=== PATIENT | male | born 1960 | race African-American/Black ===

== ENCOUNTER 2021-04-21 05:37 | Outpatient (CLI) | payer BC, OTHER ==
[~2021-04-21] VITALS: Ht 190.5 cm; Wt 136.5 kg
[~2021-04-21 05:37] MED LIST: AMIT100T2 PO; HYDR-3720 PO; PRED10TA PO
== END 2021-04-27 08:53 | disposition home or self-care (01) ==
LOC: PREOP 05:37
PROVIDERS: ATTEND Surgery
DX: Z01.818 Encounter for other preprocedural examination (principal)

== ENCOUNTER 2021-04-28 08:48 | Day surgery (SDC) | payer BC, OTHER ==
[~2021-04-28] VITALS: Ht 190.5 cm; Wt 136.5 kg
[2021-04-28] MEDS ORDERED: LACTATED RINGERS 1,000 ML IV ONE (08:51)
[2021-04-28] MEDS ORDERED: LACTATED RINGERS 1,000 ML IV STA (08:52)
[2021-04-28 09:10] VITALS: BP 140/106
[2021-04-28] MEDS ORDERED: MIDAZOLAM 2 MG/2 ML (VERSED) VIAL ONE (10:22)
[2021-04-28] MEDS ORDERED: proPOfol 200 MG/20 ML (DIPRIVAN) VIAL IV ONE ×2 (10:22→11:00)
[2021-04-28 11:00] VITALS: BP 145/103
[2021-04-28 11:05] VITALS: BP 138/106
--- NOTE | 2021-04-28 11:22 | Progress Note-Post Operative ---
Post-Operative Progess Note Surgeon (s)/Soup Person (s) Surgeon JUNIOR FELIPE DO Soup Person: na Pre-Operative Diagnosis family hx colon cancer Post-Operative Diagnosis colon polyps, diverticulosis Procedure & Operative Findings Date of Procedure 04/28/21 Procedure Performed/Findings colonoscopy c hot bx polypectomy x 4 Anesthesia Type per mda Estimated Blood Loss Estimated blood loss (mL): min Specimens/Packing Specimens Removed colon polyps JUNIOR FELIPE DO Apr 28, 2021 11:22
--- NOTE | 2021-04-28 11:24 | Discharge Inst-Simple/Standard ---
Discharge Inst-Standard Patient Instructions/Follow Up Plan of Care/Instructions/FU: 2 weeks Homar Activity as Tolerated: Yes Discharge Diet: Regular Diet (high fiber) JUNIOR FELIPE DO Apr 28, 2021 11:24
[2021-04-28 11:28] VITALS: BP 125/100
--- NOTE | 2021-04-28 11:45 | Anesthesia-General Post-Op ---
MAC Patient Condition Mental Status/LOC: Same as Preop Cardiovascular: Satisfactory Nausea/Vomiting: Absent Respiratory: Satisfactory Pain: Controlled Complications: Absent Post Op Complications Complications None Follow Up Care/Instructions Patient Instructions None needed. Anesthesiology Discharge Order Discharge Order Patient is doing well, no complaints, stable vital signs, no apparent adverse anesthesia problems. JIM STINSON DO Apr 28, 2021 11:45
--- NOTE | 2021-04-28 18:57 | OPERATIVE REPORT ---
DATE OF SERVICE: 04/28/2021 PREOPERATIVE DIAGNOSIS: Family history of colon cancer. POSTOPERATIVE DIAGNOSES: Colon polyps, diverticulosis. PROCEDURES PERFORMED: Colonoscopy with hot biopsy polypectomy x4. SURGEON: Junior Graf DO. ANESTHESIA: Per MDA. ESTIMATED BLOOD LOSS: Minimal. COMPLICATIONS: None. INDICATIONS FOR PROCEDURE: The patient is a 61-year-old male needing screening colonoscopy. He understands the risks and benefits of the procedure and wished to proceed with the procedure. Consent was signed in the chart. DESCRIPTION OF PROCEDURE: The patient was taken to the endoscopy suite and placed in a left lateral recumbent position. Timeout was performed. Digital rectal exam was performed. No palpable polyps, masses or ulcerations. The scope was inserted in the rectum and advanced all the way to cecum with minimal difficulty. Prep was adequate. Scope was slowly retracted back. No polyps, masses or ulcerations within the cecum. In the ascending colon, a small polyp was present, which hot biopsy polypectomy was performed. Scope was then continuously retracted back to the transverse colon, which another polyp was present, which hot biopsy polypectomy was performed. Scope was then continuously and slowly retracted back. Some diverticulosis was present through the remainder of the colon. Another polyp was present in the descending colon, which hot biopsy polypectomy was performed. Scope was continuously and slowly retracted back into the sigmoid colon, where another small polyp was present, which hot biopsy polypectomy was performed. Scope was then slowly retracted back into the rectum, where it was also retroflexed noting no other pathology. Scope was returned to its normal position, slowly withdrawn until completely removed. The patient tolerated the procedure well without any complications. He was taken to the recovery room in stable condition. RECOMMENDATIONS: The patient will need repeat colonoscopy in five years. Any issues before that be seen at that time. The will follow up in two weeks to discuss pathology. Job ID: [id number] DocumentID: [id number] Dictated Date: 04/28/2021 11:27:57 Moving Worker Date: 04/28/2021 18:56:53 Dictated By: JUNIOR GRFA DO
== END 2021-04-28 11:35 | disposition home or self-care (01) ==
LOC: ENDO 08:48
PROVIDERS: ATTEND Surgery
DX: Z12.11 Encounter for screening for malignant neoplasm of colon (principal); D12.2 Benign neoplasm of ascending colon; D12.3 Benign neoplasm of transverse colon; D12.4 Benign neoplasm of descending colon; K63.5 Polyp of colon; K57.90 Diverticulosis of intestine, part unspecified, without perforation or abscess without bleeding; Z80.0 Family history of malignant neoplasm of digestive organs